=== PATIENT | male | born 1965 | race Caucasian/White ===

== ENCOUNTER 2021-03-16 19:54 | Emergency (ER) | payer OTHER ==
[~2021-03-16] VITALS: Ht 185.4 cm; Wt 89.8 kg
[2021-03-16] MEDS ORDERED: IBUPROFEN 400 MG TABLET ONE (20:26)
--- NOTE | 2021-03-16 20:29 | NUR ---
PT [id number]. BIBSLEF C/O R ARM PAIN S/P LIFTING A TV.
[2021-03-16] MEDS ORDERED: IBUPROFEN 400 MG TABLET PO ONE (20:30)
--- NOTE | 2021-03-16 21:27 | NUR ---
called karthikeyan to have images read
[2021-03-16] MEDS ORDERED: IBUP-1953 PO (21:38)
--- NOTE | 2021-03-16 21:38 | NUR ---
emt at bedside for sling placement
[2021-03-16 21:50] VITALS: BP 125/76
--- NOTE | 2021-03-16 21:50 | NUR ---
Patient discharged to home in stable condition. Written and verbal after care instructions given. Patient verbalizes understanding of instruction.
== END 2021-03-16 21:51 | disposition home or self-care (01) ==
LOC: ER 19:54
DX: S46.221A Laceration of muscle, fascia and tendon of other parts of biceps, right arm, initial encounter (principal); S46.211A Strain of muscle, fascia and tendon of other parts of biceps, right arm, initial encounter; X50.0XXA Overexertion from strenuous movement or load, initial encounter; Y93.89 Activity, other specified; Y92.89 Other specified places as the place of occurrence of the external cause; Y99.8 Other external cause status
CPT/HCPCS: 73060-TC; 73080-TC

== ENCOUNTER 2021-04-03 15:53 | Emergency (ER) | payer OTHER ==
[~2021-04-03] VITALS: Ht 185.4 cm; Wt 95.3 kg
[~2021-04-03 15:53] MED LIST: IBUP-1953 PO
[2021-04-03 16:40] VITALS: BP 117/60
== END 2021-04-03 17:20 | disposition home or self-care (01) ==
LOC: ER 15:53
DX: S46.211A Strain of muscle, fascia and tendon of other parts of biceps, right arm, initial encounter (principal); F17.200 Nicotine dependence, unspecified, uncomplicated; X50.0XXA Overexertion from strenuous movement or load, initial encounter; Y93.89 Activity, other specified; Y92.89 Other specified places as the place of occurrence of the external cause; Y99.8 Other external cause status